=== PATIENT | female | born 1960 | race Caucasian/White ===

== ENCOUNTER 2023-05-16 12:01 | Outpatient (CLI) | payer OTHER | END 2023-05-16 12:02 | disposition home or self-care (01) | LOC: CSHMAMMO 12:01 | PROVIDERS: ATTEND Physician Assistant | DX: Z12.31 Encounter for screening mammogram for malignant neoplasm of breast (principal); Z80.3 Family history of malignant neoplasm of breast; Z98.890 Other specified postprocedural states | CPT/HCPCS: 77063; 77067 ==

== ENCOUNTER 2024-05-25 13:37 | Outpatient (CLI) | payer OTHER | END 2024-05-25 13:38 | disposition home or self-care (01) | LOC: CSHMAMMO 13:37 | PROVIDERS: ATTEND Physician Assistant | DX: Z12.31 Encounter for screening mammogram for malignant neoplasm of breast (principal); N63.10 Unspecified lump in the right breast, unspecified quadrant; Z80.3 Family history of malignant neoplasm of breast | CPT/HCPCS: 77063; 77067 ==

== ENCOUNTER 2024-06-15 13:36 | Outpatient (CLI) | payer OTHER | END 2024-06-15 13:37 | disposition home or self-care (01) | LOC: CSHMAMMO 13:36 | PROVIDERS: ATTEND Physician Assistant | DX: N63.10 Unspecified lump in the right breast, unspecified quadrant (principal) | CPT/HCPCS: G0279 ==

== ENCOUNTER 2024-08-13 10:21 | Outpatient (CLI) | payer OTHER | END 2024-08-13 10:22 | disposition home or self-care (01) | LOC: CSHMAMMO 10:21 | PROVIDERS: ATTEND Physician Assistant | DX: Z78.0 Asymptomatic menopausal state (principal) | CPT/HCPCS: 77080 ==